=== PATIENT | female | born 1960 | race Caucasian/White ===

== ENCOUNTER 2024-04-26 12:48 | Inpatient (IN) | payer BC, SELFPAY ==
[2024-04-26] MEDS ORDERED: Ipratropium/Albuterol 3 ML NEB NEB PRN (16:06)
[2024-04-26] MEDS ORDERED: Ondansetron PF 4 MG/2 ML Vial IVP PRN (16:06)
[2024-04-26] MEDS ORDERED: EPINEPHrine 1 MG/ML VIAL ONE (16:13)
[2024-04-26] MEDS ORDERED: Bupivacaine PF 0.5% 30 ML VIAL ONE (16:14)
[2024-04-26 16:25] LABS: #Basophils 0.05 10x3/uL (0.0-0.2); %Basophils 0.9 % (0.0-1.0); %Monocytes 15.5 % (0.0-10.0); %Neutrophils 61.3 % (42.0-75.0); Hematocrit 32.6 % (36.0-47.0); Hemoglobin 11.5 g/dL (12.0-16.0); Mean Corpuscular HGB CONC 35.3 g/dL (32.0-36.0); Mean Corpuscular Hemoglobin 35.8 pg (27.0-31.0); Mean Corpuscular Volume 101.6 fL (78.0-98.0); Mean Platelet Volume 8.5 fL (7.4-10.4); Platelet Count 219 10x3/uL (130-400); RBC Distribution Width 11.9 % (11.5-14.5); Red Blood Cell (RBC) Count 3.21 mill/uL (4.20-5.40)
[2024-04-26 16:38] LABS: INR-International Normal Ratio 1.1; Prothrombin Time 13.8 sec (12.0-14.7)
[2024-04-26 16:39] LABS: PTT 34.5 sec (22.9-36.1)
[2024-04-26 16:44] LABS: Anion Gap 12 mmol/L (10-20); BUN (Urea Nitrogen) 9 mg/dL (9.8-20.1); Calc. Creatinine Clearance 0 mL/min (70-130); Calcium 8.2 mg/dL (7.8-10.44); Carbon Dioxide 25 mmol/L (23-31); Chloride 98 mmol/L (98-107); Estimated GFR 103; Glucose 91 mg/dL (80-115); Potassium 3.6 mmol/L (3.5-5.1); Sodium 131 mmol/L (136-145)
[2024-04-26] MEDS ORDERED: cefOXitin 2 GM VIAL ONE (16:45)
[2024-04-26] MEDS ORDERED: Rocuronium Bromide 10 MG/ML (10ML VIAL) ONE (16:48)
[2024-04-26] MEDS ORDERED: Dexamethasone 4 mg/ml Vial ONE (16:48)
[2024-04-26] MEDS ORDERED: Lidocaine 1% PF 5 ML VIAL ONE (16:48)
[2024-04-26] MEDS ORDERED: SUGAMMADEX SODIUM 200 MG/2 ML VIAL ONE (16:48)
[2024-04-26] MEDS ORDERED: fentaNYL PF 100 MCG/2 ML SYRINGE ONE (16:48)
[2024-04-26] MEDS ORDERED: Ondansetron PF 4 MG/2 ML Vial ONE (16:48)
[2024-04-26] MEDS ORDERED: PROPOFOL 40 ML ONE (16:48)
[2024-04-26 16:51] VITALS: BMI 29.5
[2024-04-26] MEDS ORDERED: Dexmedetomidine 200 MCG/2 ML VIAL ONE (17:18)
[2024-04-26] MEDS ORDERED: SUCCINYLCHOLINE/SOD CL,ISO/PF 200 MG/10 ML SYRINGE FS ONE (17:18)
[2024-04-26] MEDS ORDERED: Labetalol HCl 100 MG/20 ML VIAL ONE (18:35)
[2024-04-26] MEDS: hydrALAZINE 20 MG/ML VIAL SLOW IVP PRN (21:22)
[2024-04-26] MEDS: Famotidine/PF 20 mg/2ml Vial SLOW IVP SCH (21:22)
[2024-04-26] MEDS: Morphine 2 MG/ML VIAL SLOW IVP PRN (21:23)
[2024-04-26] MEDS: Sodium Chloride 0.9% 1,000 ML IV SCH (21:24)
[2024-04-26] MEDS: Potassium Chloride 20 MEQ TAB PO SCH ×2 (22:09→22:10)
[2024-04-27] MEDS: Acetaminophen 325 MG TAB PO PRN (04:23)
[2024-04-27 05:05] LABS: #Basophils Less than 0.03 10x3/uL (0.0-0.2); #Eosinophils Less than 0.03 10x3/uL (0.0-0.7); %Basophils 0.3 % (0.0-1.0); %Lymphocytes 10.8 % (21.0-51.0); %Monocytes 9.3 % (0.0-10.0); %Neutrophils 79.4 % (42.0-75.0); Hematocrit 29.8 % (36.0-47.0); Hemoglobin 10.7 g/dL (12.0-16.0); Mean Corpuscular HGB CONC 35.9 g/dL (32.0-36.0); Mean Corpuscular Hemoglobin 35.9 pg (27.0-31.0); Mean Platelet Volume 8.7 fL (7.4-10.4); Platelet Count 209 10x3/uL (130-400); RBC Distribution Width 11.9 % (11.5-14.5); Red Blood Cell (RBC) Count 2.98 mill/uL (4.20-5.40)
[2024-04-27 05:24] LABS: Anion Gap 13 mmol/L (10-20); BUN (Urea Nitrogen) 7 mg/dL (9.8-20.1); Calc. Creatinine Clearance 110 mL/min (70-130); Calcium 7.8 mg/dL (7.8-10.44); Carbon Dioxide 20 mmol/L (23-31); Chloride 98 mmol/L (98-107); Estimated GFR 100; Glucose 101 mg/dL (80-115); Potassium 3.8 mmol/L (3.5-5.1); Sodium 127 mmol/L (136-145)
[2024-04-27 05:29] LABS: INR-International Normal Ratio 1.2; PTT 34.4 sec (22.9-36.1); Prothrombin Time 15.5 sec (12.0-14.7)
[2024-04-27] MEDS: Lisinopril 10 MG TAB PO SCH (09:14)
[2024-04-27] MEDS: Methocarbamol 500 MG TAB PO SCH (09:14)
[2024-04-27] MEDS: Enoxaparin 40 MG (0.4 mL) SYRINGE SC SCH (09:14)
[2024-04-27] MEDS: D5 1/2 NS w/10 mEq KCl 1,000 ML/1,000 ML BAG IV SCH (09:16)
[2024-04-27] MEDS: HYDROcodone/Acetaminophen 5/325 mg Tablet PO PRN (12:16)
[2024-04-27] MEDS: Lidocaine 4% Patch TD PRN (16:44)
[2024-04-27] MEDS: Melatonin 3 MG TAB PO PRN (23:59)
[2024-04-27] MEDS ORDERED: LIDOCAINE Patch Removal TOP PRN (23:59)
[2024-04-28] MEDS: Ketorolac Tromethamine 30 MG (1 mL) VIAL IVP PRN (01:20)
[2024-04-28 05:00] LABS: #Basophils 0.04 10x3/uL (0.0-0.2); %Basophils 0.7 % (0.0-1.0); %Eosinophils 4.4 % (0.0-10.0); %Lymphocytes 18.9 % (21.0-51.0); %Monocytes 14.3 % (0.0-10.0); %Neutrophils 61.5 % (42.0-75.0); Hematocrit 27.3 % (36.0-47.0); Hemoglobin 9.9 g/dL (12.0-16.0); Mean Corpuscular HGB CONC 36.3 g/dL (32.0-36.0); Mean Corpuscular Hemoglobin 36.5 pg (27.0-31.0); Mean Corpuscular Volume 100.7 fL (78.0-98.0); Mean Platelet Volume 8.9 fL (7.4-10.4); Platelet Count 194 10x3/uL (130-400); RBC Distribution Width 11.7 % (11.5-14.5); Red Blood Cell (RBC) Count 2.71 mill/uL (4.20-5.40)
[2024-04-28 05:15] LABS: Anion Gap 10 mmol/L (10-20); BUN (Urea Nitrogen) 4 mg/dL (9.8-20.1); Calc. Creatinine Clearance 130 mL/min (70-130); Carbon Dioxide 23 mmol/L (23-31); Chloride 99 mmol/L (98-107); Estimated GFR 104; Glucose 128 mg/dL (80-115); Magnesium 1.8 mg/dL (1.6-2.6); Phosphorus 2.1 mg/dL (2.3-4.7); Potassium 3.1 mmol/L (3.5-5.1); Sodium 129 mmol/L (136-145)
[2024-04-28] MEDS: HYDROcodone/Acetaminophen 7.5/325 mg Tablet PO PRN (05:55)
[2024-04-28] MEDS: Potassium Chloride 20 MEQ in Premix 1 BAG IVPB SCH (08:17)
[2024-04-28] MEDS: Sodium Chloride 1 GM TAB PO SCH (20:38)
[2024-04-29 05:25] LABS: Anion Gap 12 mmol/L (10-20); BUN (Urea Nitrogen) 5 mg/dL (9.8-20.1); Calc. Creatinine Clearance 137 mL/min (70-130); Calcium 8.6 mg/dL (7.8-10.44); Carbon Dioxide 22 mmol/L (23-31); Chloride 98 mmol/L (98-107); Estimated GFR 105; Glucose 85 mg/dL (80-115); Potassium 3.8 mmol/L (3.5-5.1); Sodium 128 mmol/L (136-145)
[2024-04-29] MEDS: Polyethylene Glycol 3350 17 GM Packet PO SCH (08:08)
[2024-04-29 12:06] VITALS: TEMP 98.2
[2024-04-29 12:08] VITALS: BP 160/89
[2024-04-29 13:42] LABS: Anion Gap 13 mmol/L (10-20); BUN (Urea Nitrogen) 6 mg/dL (9.8-20.1); Calc. Creatinine Clearance 128 mL/min (70-130); Calcium 8.3 mg/dL (7.8-10.44); Carbon Dioxide 20 mmol/L (23-31); Chloride 98 mmol/L (98-107); Estimated GFR 103; Glucose 104 mg/dL (80-115); Potassium 3.4 mmol/L (3.5-5.1); Sodium 128 mmol/L (136-145)
== END 2024-04-29 16:13 | disposition home or self-care (01) | DRG 329 ==
LOC: SURG A 13:51
PROVIDERS: ADMIT Surgery; ATTEND Surgery
PROC: 0DB84ZZ Excision of Small Intestine, Percutaneous Endoscopic Approach (ICD-10-PCS; principal; 2024-04-26)
DX: K56.691 Other complete intestinal obstruction (principal); K63.1 Perforation of intestine (nontraumatic); E87.1 Hypo-osmolality and hyponatremia; C17.9 Malignant neoplasm of small intestine, unspecified; Z98.891 History of uterine scar from previous surgery; Z90.710 Acquired absence of both cervix and uterus
CPT/HCPCS: 36415; 80048; 83735; 84100; 85025; 85610; 85730; 86850; 86900; 86901; 88307; A4314; J0171; J0360; J0665; J0694; J1100; J1650; J1885; J2272; J2405; J2704; J3480; J3490; J7030